=== PATIENT | male | born 1960 | race Caucasian/White ===

== ENCOUNTER 2016-04-03 08:46 | Day surgery (SDC) | payer OTHER ==
[2016-03-29 09:23] VITALS: BMI 47.2
[~2016-04-03 08:46] MED LIST: LACTATED RINGERS 1,000 ML IV SCH
[2016-04-03 09:15] VITALS: RESP 18; TEMP 98.8
[2016-04-03] MEDS ORDERED: LIDOCAINE 1% 20 ML VIAL (10MG/ML) FOR IV START INTRADERMA ONE (09:26)
[2016-04-03] MEDS ORDERED: DEXAMETHASONE SOD PHOS (MDV) 100 MG/10 ML VIAL ONE (10:07)
[2016-04-03] MEDS ORDERED: MIDAZOLAM 2 MG/2 ML VIAL ONE (10:07)
[2016-04-03] MEDS ORDERED: fentaNYL (PF) 50 MCG/ML 2 ML AMP ONE (10:07)
[2016-04-03] MEDS ORDERED: IOHEXOL 180 MG/ML 1 ML ML ONE (10:07)
--- NOTE | 2016-04-03 10:39 | P.PCN ---
Date of Procedure: 04/03/16 Anesthesia: MAC Surgeon: Ede Lowry Pathology: none sent Condition: stable Disposition: PACU Description of Procedure: PREOPERATIVE DIAGNOSIS: Cervical radiculopathy and postlaminectomy syndrome. POSTOPERATIVE DIAGNOSIS: same PROCEDURE 1. Cervical epidural steroid injection under fluoroscopic guidance, C7-T1 level. 2. Cervical epidurogram. ANESTHESIA: Local anesthesia with 1% lidocaine and IV sedation with versed/ fentanyl. EBL: Minimal PROCEDURE INDICATION: The patient with neck pain and radiculitis unresponsive to conservative treatment consents for procedure. PROCEDURE DESCRIPTION / TECHNIQUE: The patient was seen and identified in the preoperative area. Risks, benefits, complications, and alternatives were discussed with the patient (including but not limited to incomplete pain relief, bleeding, infection, nerve damage, and allergies to medications), the patient agreed to proceed with the procedure and signed the consent after all questions were answered. Patient was taken to the OR and time out was completed to verify proper patient , position, laterality of pain, and allergies. Pt was placed in the prone position. A pillow was placed under the patients chest to increase the cervical interlaminar space. The cervical area was prepped and draped in the usual sterile fashion. Critical pause was taken. Vital signs were closely monitored during the procedure. Conscious sedation was used during the procedure to decrease patients anxiety. Using anterior-posterior fluoroscopy, the C7-T1 interlaminar space was identified and the skin over this site was marked and then infiltrated with 1% lidocaine subcutaneously in a left paramedian fashion. Subsequently, a 20-gauge 3.5-inch Tuohy epidural needle was inserted and advanced toward the epidural space by means of the loss of resistance technique and guided by AP and lateral fluoroscopy. After negative aspiration for blood or CSF and in the absence of paresthesias, the correct needle position in the epidural space was verified with the injection of 1 mL of the water soluble contrast dye Omnipaque- 180 and observing an excellent epidurogram with the epidural spread of the dye, after negative aspiration for blood and CSF and in the absence of paresthesias. Again after negative aspiration, a 6 ml mixture containing 20 mg of PF Decadron and 4 ml of preservative free Normal Saline solution was injected and a washout of epidurogram was seen. Needle was withdrawn intact, skin was cleansed, and bandages were applied. COMPLICATIONS: None COMMENTS: DISPOSITION / PLANS: The patient was placed in a supine position and transferred to the recovery area in a stable condition for observation. There was no evidence of upper extremity motor or sensory deficit after the procedure. Patient was discharged from the recovery room after meeting discharge criteria. Home discharge instructions were given to the patient by the staff. The patient was reexamined prior to discharge. The patient will schedule a follow up injection in 4-[address] the patient in steep reverse Trendelenburg allowed me to use a 3.5-inch needle for the procedure (I used a 6-inch needle at last visit).
[2016-04-03] MEDS ORDERED: IV FLUID CONTINUATION 1,000 ML IV ONE (10:49)
--- NOTE | 2016-04-03 10:52 | FL ---
EXAMINATION TYPE: FL guided pain mgmt statistic DATE OF EXAM: 04/03/2016 10:41 AM HISTORY: Pain PATIENT HAS UPPER NECK PAIN. DR. LOPEZ ASSISTED C-ARM AND CERVICAL EPIDRUAL INJ. 21 SEC FLUORO TIME A ND 2 PAPER IMAGES SCANNED.
[2016-04-03 11:06] VITALS: BP 130/72; PULSE 97
== END 2016-04-03 11:16 | disposition home or self-care (01) ==
LOC: ORPAIN 08:46
PROVIDERS: ATTEND Anesthesiology
DX: M54.12 Radiculopathy, cervical region (principal); M96.1 Postlaminectomy syndrome, not elsewhere classified; I10 Essential (primary) hypertension; E78.5 Hyperlipidemia, unspecified; E66.01 Morbid (severe) obesity due to excess calories; F41.9 Anxiety disorder, unspecified; Z79.899 Other long term (current) drug therapy
CPT/HCPCS: 62321; J2250; Q9965; J3010; J1100

== ENCOUNTER 2016-05-15 09:57 | Day surgery (SDC) | payer OTHER ==
[2016-05-11 11:58] VITALS: BMI 46.0
[2016-05-15] MEDS ORDERED: LIDOCAINE 1% 20 ML VIAL (10MG/ML) FOR IV START INTRADERMA ONE (10:08)
[2016-05-15] MEDS ORDERED: MIDAZOLAM 2 MG/2 ML VIAL ONE (10:52)
[2016-05-15] MEDS ORDERED: TRIAMCINOLONE ACETONIDE 40 MG/ML 1 ML VIAL ONE (10:52)
[2016-05-15] MEDS ORDERED: BUPIVACAINE (PF) 0.5% 30 ML VIAL ONE (10:52)
[2016-05-15 11:14] VITALS: RESP 18
[2016-05-15] MEDS ORDERED: IV FLUID CONTINUATION 900 ML IV ONE (11:17)
[2016-05-15 11:30] VITALS: BP 144/76; PULSE 95
--- NOTE | 2016-05-25 12:17 | P.PCN ---
Date of Procedure: 05/15/16 Surgeon: Ede Lowry Pathology: none sent Condition: stable Disposition: PACU Description of Procedure: PREOPERATIVE DIAGNOSIS: 1-myofascial pain syndrome POSTOPERATIVE DIAGNOSIS: 1-myofascial pain syndrome PROCEDURE 1. Trigger point injections (3 muscle groups) ANESTHESIA: Local with 1% lidocaine; IV sedation with Versed/fentanyl. EBL: Minimal PROCEDURE INDICATION: The patient with myofascial pain in the area of cervical paraspinal, rhomboid, and trapezius muscles that has not responded to conservative therapy. Patient presents for trigger point injection today; no use of blood thinners. PROCEDURE DESCRIPTION / TECHNIQUE: The patient was seen and identified in the preoperative area. Risks, benefits, complications, and alternatives were discussed with the patient, including but not limited to bleeding, infection, nerve damage, allergic reactions to medications, and incomplete pain relief. The patient agreed to proceed with the procedure and signed the consent after all questions were answered. IV was started, and vital signs were stable. A total of eight trigger points were marked prior to entering the procedure room in the places where the patient had severe pain to muscle palpation. Patient was taken to the OR and time out was completed to confirm patient position, procedure, laterality of pain, and allergies. The patient was placed in the sitting position on procedure table. The area over the relevant muscles (neck, shoulder, and shoulder blade) was prepped and draped in the usual sterile fashion. Vital signs were closely monitored during the procedure. Conscious sedation was used during the procedure to decrease patients anxiety. Each of the previously marked areas was then infiltrated with 1% plain lidocaine using a 25g needle. After this, each point was entered with the same 25g needle and after a catch was felt, dry needling was performed. After negative aspiration at each point, 1 ml of a total of 8 ml (combination of 7 ml 0.5% bupivacaine and 40 mg Kenalog was injected in each area. Needle was withdrawn intact each time, skin was cleansed, and bandages were applied. COMPLICATIONS: None COMMENTS: None DISPOSITION / PLANS: The patient was placed in a supine position and transferred to the recovery area in a stable condition for observation. There was no evidence of lower extremity motor or sensory deficit after the procedure. Patient was discharged from the recovery room after meeting discharge criteria. Home discharge instructions were given to the patient by the staff. The patient was reexamined prior to discharge and there were no issues. The patient will schedule a follow up in the clinic in 2-4 weeks after seeing his neurosurgeon.
== END 2016-05-15 11:45 | disposition home or self-care (01) ==
LOC: ORPAIN 09:57
PROVIDERS: ATTEND Anesthesiology
DX: M79.1 Myalgia (principal); G89.29 Other chronic pain; M54.12 Radiculopathy, cervical region; I10 Essential (primary) hypertension; E78.5 Hyperlipidemia, unspecified; F12.90 Cannabis use, unspecified, uncomplicated; M25.512 Pain in left shoulder; Z79.82 Long term (current) use of aspirin; Z79.899 Other long term (current) drug therapy
CPT/HCPCS: 62321; J2250; J3301

== ENCOUNTER → 2016-10-17 | Outpatient (CLI) | payer OTHER ==
--- NOTE | 2016-10-19 07:35 | P.PN ---
Subjective This is follow-up visit for this patient with a history of severe and chronic pain with radiation to the upper extremity, possible cervical radiculopathy status post cervical fusion,, we have done interventional pain management injection,, cervical epidural steroid injections with fluroscopy guidance and trigger point injection, had excellent pain relief , intervention was done several months ago and currently patient complaining of severe neck pain with radiation to the left upper extremity Patient denies any side effects of the medication, denies excessive drowsiness or sleepiness, denies suicidal ideation, and reports that the current pain medication is NOT helping To control the pain and improve activity of daily living Patient denies any motor or sensory deficit , patient denies any fever or night sweats, denies any change in the bowel movements or urination Physical Examinations : 1-Constitutiona : Cooperative , not in acute distress . 2-HEENT : nech ; supple , no Lymphadenopathy , no Thyromegaly , normal thyroid size . eyes : no ptosis , no icterus, no photophobia . ENT : normal of hearing , normal oropharynx , no Thrush . 3- Respiratory : Chest clear to auscultations Bilaterally , no wheezing , no Rhonchi . 4- Cardiovascular : regular rate and rhythem , S1 , S2 , no S3 , no S4. 5- Gastrointestinal : abdomen soft no tenderness , bowel sounds positive all four quadrents , no organomegally . 6- Genitourinary : Defferred . 7- neurologic : Cranial nerve II to XII intact , no focal neurological deffecit . 8-psychatric : alert , oriented X 3 , appropriate affect , intact judgment and insight . 9-Lymphatic : no Lymphadenopathy . 10- musculoskeltal : exams of the cervical spine = motor strength normal bilateral upper extremities facet loading test cervical area positive. exams of the Lumber spine = motor strength lower extremities ,thigh and legs .5/5 Assessment and plan = Chronic and secondary to cervical radiculopathy, could benefit from repeat cervical epidural steroid injections procedure risks and benefits and alternatives discussed with the patient and he agreed with the preceding patient will be scheduled for cervical epidural sterile injection ROBERT
== END | disposition home or self-care (01) ==
LOC: PNWHC3 13:01
PROVIDERS: ATTEND Specialist
DX: M54.12 Radiculopathy, cervical region (principal); Z79.52 Long term (current) use of systemic steroids
CPT/HCPCS: 99211

== ENCOUNTER 2016-11-08 05:55 | Day surgery (SDC) | payer OTHER ==
[2016-11-06 09:21] VITALS: BMI 46.8
[2016-11-08 06:50] VITALS: RESP 18; TEMP 98.8
[2016-11-08] MEDS ORDERED: LACTATED RINGERS 1,000 ML IV ONE (06:56)
[2016-11-08] MEDS ORDERED: LIDOCAINE 1% 20 ML VIAL (10MG/ML) FOR IV START INTRADERMA ONE (06:57)
[2016-11-08] MEDS ORDERED: LACTATED RINGERS 1,000 ML IV SCH (07:15)
--- NOTE | 2016-11-08 07:54 | P.PCN ---
Date of Procedure: 11/08/16 Surgeon: Ede Lowry Pathology: none sent Condition: stable Disposition: PACU Description of Procedure: PREOPERATIVE DIAGNOSIS: Cervical radiculopathy and postlaminectomy syndrome. POSTOPERATIVE DIAGNOSIS: same PROCEDURE 1. Cervical epidural steroid injection under fluoroscopic guidance, T1-T2 level. 2. Cervical epidurogram. ANESTHESIA: Local anesthesia with 1% lidocaine and IV sedation with versed/ fentanyl. EBL: Minimal PROCEDURE INDICATION: The patient with neck pain and radiculitis s/p ACDF unresponsive to conservative treatment consents for procedure. No use of blood thinners. He has had relief for 4-5 days from each previous cervical epidural steroid injection and is planning to have surgery if the third procedure today again gives him limited relief. PROCEDURE DESCRIPTION / TECHNIQUE: The patient was seen and identified in the preoperative area. Risks, benefits, complications, and alternatives were discussed with the patient (including but not limited to incomplete pain relief, bleeding, infection, nerve damage, and allergies to medications), the patient agreed to proceed with the procedure and signed the consent after all questions were answered. Patient was taken to the OR and time out was completed to verify proper patient , position, laterality of pain, and allergies. Pt was placed in the prone position. A pillow was placed under the patients chest to increase the cervical interlaminar space. The cervical area was prepped and draped in the usual sterile fashion. Critical pause was taken. Vital signs were closely monitored during the procedure. Conscious sedation was used during the procedure to decrease patients anxiety. Using anterior-posterior fluoroscopy, the T1-T2 interlaminar space was identified and the skin over this site was marked and then infiltrated with 1% lidocaine subcutaneously in a left paramedian fashion. Subsequently, a 18-gauge 6-inch Tuohy epidural needle was inserted and advanced toward the epidural space by means of the loss of resistance technique and guided by AP and lateral fluoroscopy. After negative aspiration for blood or CSF and in the absence of paresthesias, the correct needle position in the epidural space was verified with the injection of 1 mL of the water soluble contrast dye Omnipaque- 180 and observing an excellent epidurogram with the epidural spread of the dye, after negative aspiration for blood and CSF and in the absence of paresthesias. Again after negative aspiration, a 4 ml mixture containing 20 mg of PF Decadron and 2 ml of preservative free Normal Saline solution was injected and a washout of epidurogram was seen. Needle was withdrawn intact, skin was cleansed, and bandages were applied. COMPLICATIONS: None COMMENTS: DISPOSITION / PLANS: The patient was placed in a supine position and transferred to the recovery area in a stable condition for observation. There was no evidence of upper extremity motor or sensory deficit after the procedure. Patient was discharged from the recovery room after meeting discharge criteria. Home discharge instructions were given to the patient by the staff. The patient was reexamined prior to discharge and there were no issues. The patient will schedule a follow up as needed.
[2016-11-08] MEDS ORDERED: IV FLUID CONTINUATION 1,000 ML IV ONE (08:02)
--- NOTE | 2016-11-08 08:11 | FL ---
EXAMINATION TYPE: FL guided pain mgmt statistic DATE OF EXAM: 11/08/2016 HISTORY: Pain CERVICAL EPI INJ. DR. LOPEZ. 11 SEC FLUOR. 3 IMAGES SAVED
[2016-11-08 08:35] VITALS: BP 131/65; PULSE 88
== END 2016-11-08 08:41 | disposition home or self-care (01) ==
LOC: ORPAIN 05:55
PROVIDERS: ATTEND Anesthesiology
DX: G89.29 Other chronic pain (principal); M54.12 Radiculopathy, cervical region; M96.1 Postlaminectomy syndrome, not elsewhere classified
CPT/HCPCS: 62321; 99152; J2250; J1100; Q9965; J3010

== ENCOUNTER → 2017-03-12 | Outpatient (CLI) | payer OTHER ==
--- NOTE | 2017-03-12 12:20 | CT ---
EXAMINATION TYPE: CT wrist LT wo con DATE OF EXAM: 03/12/2017 COMPARISON: NONE HISTORY: Left sided wrist pain for [address] DLP: 159.[address] of the left wrist . TECHNIQUE: Unenhanced CT of the left wrist was performed with bone and soft tissue window settings paz bmitted in the axial coronal and sagittal planes. FINDINGS: There is virtually nondisplaced fracture involving the distal radius with intra-articular e xtension. 2.8 mm bony fragment seen bilaterally. No additional fracture seen. Distal ulna is intact. There is mild surrounding soft tissue edema. IMPRESSION: 1. Virtually nondisplaced fracture of the distal radius with intra-articular extension.
== END | disposition home or self-care (01) ==
LOC: RADCTMAIN 11:14
PROVIDERS: ATTEND Family Medicine
DX: S52.572A Other intraarticular fracture of lower end of left radius, initial encounter for closed fracture (principal)

== ENCOUNTER 2018-04-02 09:43 | Inpatient (IN) | payer OTHER ==
[2018-04-02] MEDS ORDERED: predniSONE 20 MG TAB PO STA (09:52)
--- NOTE | 2018-04-02 09:58 | ED ---
General Adult HPI - General Chief complaint: Neuro Symptoms/Deficit Stated complaint: poss CVA Time Seen by Provider: 04/02/18 09:50 Source: patient, EMS, RN notes reviewed, old records reviewed Mode of arrival: EMS Limitations: no limitations - History of Present Illness Initial comments: 57-year-old male presents from primary care office with sided facial droop and slurred speech. Symptoms began on Sunday which was 5 days prior to arrival. Symptoms have progressed, patient has noted tearing from the left eye, slurred speech, left-sided facial droop, and pain behind his ear. 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 Denies headache. Denies vision changes. Denies focal numbness or weakness in his extremities. No history of TIA or CVA. He does have history of diabetes and hypertension. - Related Data Home Medications Medication Instructions Recorded Confirmed Lisinopril [Zestril] 20 mg PO DAILY 09/16/15 04/02/18 Aspirin [Adult Low Dose Aspirin EC] 81 mg PO DAILY 12/20/15 04/02/18 amLODIPine [Norvasc] 5 mg PO DAILY 12/20/15 04/02/18 Furosemide [Lasix] 40 mg PO DAILY 05/11/16 04/02/18 Atorvastatin [Lipitor] 10 mg PO HS 04/02/18 04/02/18 Fluticasone Nasal [place] [Flonase 1 spray EA NOSTRIL DAILY 04/02/18 04/02/18 Nasal [place]] Allergies Allergy/AdvReac Type Severity Reaction Status Date / Time gabapentin [From Neurontin] AdvReac Blurred Verified 04/02/18 10:38 Vision Review of Systems ROS Statement: Those systems with pertinent positive or pertinent negative responses have been documented in the HPI. ROS Other: All systems not noted in ROS Statement are negative. Past Medical History Past Medical History: Eye Disorder, Hyperlipidemia, Hypertension Additional Past Medical History / Comment(s): L wrist carpel tunnel, cervical pain with certain positions. Elbow and arm pain. Had eye exam L eye needs further examination. States has some blurred vision @ times. Hx. of Severino's Palsy. History of Any Multi-Drug Resistant Organisms: None Reported Past Surgical History: Hernia Repair, Orthopedic Surgery Additional Past Surgical History / Comment(s): gallbladder stone removal- uncertain if had cholecystectomy, colonoscopy, L arm muscle/bone surgery, cervical surgery for herniated disc with plate and screws. skin tags removed from lucy axilla, carpal tunnel Past Anesthesia/Blood Transfusion Reactions: No Reported Reaction Past Psychological History: No Psychological Hx Reported Smoking Status: Former smoker Past Alcohol Use History: Rare Past Drug Use History: None Reported - Past Family History Father Family Medical History: Cancer Additional Family Medical History / Comment(s): lung Mother Family Medical History: Hypertension General Exam Limitations: no limitations General appearance: alert, in no apparent distress Head exam: Present: atraumatic, normocephalic Eye exam: Present: PERRL, EOMI, other (Ptosis bilaterally, worse on the right) ENT exam: Absent: TM's normal bilaterally (External auditory canal on the left is within normal limits, there is cerumen impaction, TM not visualized) Neck exam: Present: normal inspection. Absent: tenderness, meningismus Respiratory exam: Present: normal lung sounds bilaterally. Absent: respiratory distress Cardiovascular Exam: Present: regular rate, normal rhythm GI/Abdominal exam: Present: soft. Absent: distended, tenderness Extremities exam: Present: normal inspection, normal capillary refill. Absent: pedal edema Neurological exam: Present: alert, oriented X3, normal gait, motor sensory deficit. Absent: CN II-XII intact Expanded Neurological exam: Present: other (Mild dysarthria) Cranial nerves: EOM's Intact: Normal, Gag Reflex: Normal, Tongue Deviation: Normal, Nystagmus: Normal, Facial Sensation: Normal, Facial Palsy without Forehead Movement: Abnormal Left Cerebellar function: Finger to Nose: Normal Sensory exam: Upper Extremity Light Touch: Normal, Lower Extremity Light Touch: Normal Motor strength exam: RUE: 5, LUE: 5, RLE: 5, LLE: 5 Eye Response: (4) open spontaneously Motor Response: (6) obeys commands Verbal Response: (5) oriented Psychiatric exam: Present: normal affect, normal mood Skin exam: Present: warm, dry, intact. Absent: cyanosis, diaphoretic Course Vital Signs 04/02/18 04/02/18 04/02/18 09:47 10:28 11:49 Temperature 98.1 F Pulse Rate 90 93 80 Respiratory 18 18 18 Rate Blood Pressure 161/69 159/84 139/85 O2 Sat by Pulse 97 94 L 100 Oximetry - Reevaluation(s) Reevaluation #1: 04/02/18 12:02 Patient reevaluated, signs and symptoms unchanged, vital signs stable Reevaluation #2: 04/02/18 1000 Case discussed with patient's primary care physician Dr. Simon, he had sent the patient from the office with these symptoms. 04/02/18 12:18 EKG Findings - EKG Comments: EKG Findings:: EKG: Normal sinus rhythm, LVH no ST segment changes, QRS is slightly widened at 110 ms, ventricular rate of 80, TX interval 150, QTC 445 Medical Decision Making - Medical Decision Making 57-year-old male presenting with left-sided facial droop, dysarthria, which began 4 days prior to arrival. Patient was sent from primary care office for evaluation of CVA. I do feel there could be some component of early Severino's palsy as there is some upper facial weakness associated with the lower weakness as well however patient has dysarthria, NIH of 3. Head CT is obtained, shows chronic ischemic changes, no acute large CVA or intracranial hemorrhage, workup reveals mild leukocytosis, 12.1, stable hemoglobin, chest x-ray negative for acute cardiopulmonary disease, CMP is within normal limits. Case discussed again with the patient's primary care physician Dr. Dodge, will admit for further workup. We will treat both CVA and Severino's palsy. - Lab Data Result diagrams: 04/02/18 10:25 04/02/18 10:25 Lab Results 04/02/18 04/02/18 04/02/18 Range/Units 10:25 10:25 10:25 WBC 12.1 H (3.8-10.6) k/uL RBC 4.97 (4.30-5.90) m/uL Hgb 14.2 (13.0-17.5) gm/dL Hct 43.7 (39.0-53.0) % MCV 88.0 (80.0-100.0) fL MCH 28.6 (25.0-35.0) pg MCHC 32.5 (31.0-37.0) g/dL RDW 14.1 (11.5-15.5) % Plt Count 266 (150-450) k/uL Neutrophils % 70 % Lymphocytes % 20 % Monocytes % 5 % Eosinophils % 3 % Basophils % 1 % Neutrophils # 8.5 H (1.3-7.7) k/uL Lymphocytes # 2.4 (1.0-4.8) k/uL Monocytes # 0.6 (0-1.0) k/uL Eosinophils # 0.4 (0-0.7) k/uL Basophils # 0.1 (0-0.2) k/uL PT (9.0-12.0) sec INR (<1.2) APTT (22.0-30.0) sec Sodium 145 (137-145) mmol/L Potassium 3.9 (3.5-5.1) mmol/L Chloride 104 (98-107) mmol/L Carbon Dioxide 31 H (22-30) mmol/L Anion Gap 10 mmol/L BUN 22 H (9-20) mg/dL Creatinine 0.90 (0.66-1.25) mg/dL Est GFR (CKD-EPI)AfAm >90 (>60 ml/min/1.73 sqM) Est GFR (CKD-EPI)NonAf >90 (>60 ml/min/1.73 sqM) Glucose 139 H (74-99) mg/dL Calcium 9.5 (8.4-10.2) mg/dL Total Bilirubin 0.7 (0.2-1.3) mg/dL AST 27 (17-59) U/L ALT 41 (21-72) U/L Alkaline Phosphatase 72 (38-126) U/L Total Creatine Kinase 157 (55-170) U/L CK-MB (CK-2) 1.0 (0.0-2.4) ng/mL CK-MB (CK-2) Rel Index 0.6 Troponin I <0.012 (0.000-0.034) ng/mL Total Protein 7.7 (6.3-8.2) g/dL Albumin 4.2 (3.5-5.0) g/dL 04/02/18 Range/Units 10:25 WBC (3.8-10.6) k/uL RBC (4.30-5.90) m/uL Hgb (13.0-17.5) gm/dL Hct (39.0-53.0) % MCV (80.0-100.0) fL MCH (25.0-35.0) pg MCHC (31.0-37.0) g/dL RDW (11.5-15.5) % Plt Count (150-450) k/uL Neutrophils % % Lymphocytes % % Monocytes % % Eosinophils % % Basophils % % Neutrophils # (1.3-7.7) k/uL Lymphocytes # (1.0-4.8) k/uL Monocytes # (0-1.0) k/uL Eosinophils # (0-0.7) k/uL Basophils # (0-0.2) k/uL PT 11.0 (9.0-12.0) sec INR 1.0 (<1.2) APTT 29.5 (22.0-30.0) sec Sodium (137-145) mmol/L Potassium (3.5-5.1) mmol/L Chloride (98-107) mmol/L Carbon Dioxide (22-30) mmol/L Anion Gap mmol/L BUN (9-20) mg/dL Creatinine (0.66-1.25) mg/dL Est GFR (CKD-EPI)AfAm (>60 ml/min/1.73 sqM) Est GFR (CKD-EPI)NonAf (>60 ml/min/1.73 sqM) Glucose (74-99) mg/dL Calcium (8.4-10.2) mg/dL Total Bilirubin (0.2-1.3) mg/dL AST (17-59) U/L ALT (21-72) U/L Alkaline Phosphatase (38-126) U/L Total Creatine Kinase (55-170) U/L CK-MB (CK-2) (0.0-2.4) ng/mL CK-MB (CK-2) Rel Index Troponin I (0.000-0.034) ng/mL Total Protein (6.3-8.2) g/dL Albumin (3.5-5.0) g/dL Disposition Clinical Impression: Cerebrovascular accident, Severino's palsy Disposition: [facility] Condition: Stable Is patient prescribed a controlled substance at d/c from ED?: No Referrals: Steve Simon Jr, [Primary Care Provider] - 1-2 days Decision to Admit Reason: Admit from EC Decision Date: 04/02/18 Decision Time: 12:18
--- NOTE | 2018-04-02 10:43 | XR ---
EXAMINATION TYPE: XR chest 2V DATE OF EXAM: 04/02/2018 COMPARISON: 09/16/2015 INDICATION: Altered mental status left facial droop TECHNIQUE: Frontal and lateral views of the chest are obtained. FINDINGS: The heart size is normal. The pulmonary vasculature is normal. The lungs are clear. There is prior anterior cervical fusion lower cervical spine. IMPRESSION: 1. No acute pulmonary process.
[2018-04-02 10:48] LABS: Basophils # (A) 0.1 k/uL (0-0.2); Basophils % (A) 1 %; Eosinophils # (A) 0.4 k/uL (0-0.7); Eosinophils % (A) 3 %; HCT 43.7 % (39.0-53.0); HGB 14.2 gm/dL (13.0-17.5); Lymphocytes # (A) 2.4 k/uL (1.0-4.8); Lymphocytes % (A) 20 %; MCH 28.6 pg (25.0-35.0); MCHC 32.5 g/dL (31.0-37.0); Mean Platelet Volume 6.4; Monocytes # (A) 0.6 k/uL (0-1.0); Monocytes % (A) 5 %; Neutrophils # (A) 8.5 k/uL (1.3-7.7); Neutrophils % (A) 70 %; Platelet Count 266 k/uL (150-450); RBC 4.97 m/uL (4.30-5.90); RDW 14.1 % (11.5-15.5); WBC 12.1 k/uL (3.8-10.6)
--- NOTE | 2018-04-02 10:51 | CT ---
EXAMINATION TYPE: CT brain wo con DATE OF EXAM: 04/02/2018 COMPARISON: None HISTORY: Patient complains of headache and slurred speech. CT DLP: 1137.[address] of the brain was performed. The ventricles, basal cisterns and sulci overlying the cerebral convexities demonstrate mild enlargem ent. There is no evidence for intracranial hemorrhage or sulcal effacement. There is decreased attenuation about the periventricular white matter and deep white matter of both c erebral hemispheres, compatible with chronic small vessel ischemia. Differential diagnosis does inclu de demyelination. No mass effects are seen.No midline shift. Osseous calvarium is intact. If symptoms persist consider MRI. IMPRESSION: 1. Age related atrophic and chronic small vessel ischemic change without acute intracranial process s een at this time.
[2018-04-02 10:54] LABS: Partial Thromboplastin Time 29.5 sec (22.0-30.0)
[2018-04-02 11:03] LABS: Creatine Kinase 157 U/L (55-170)
[2018-04-02 11:05] LABS: ALT 41 U/L (21-72); AST 27 U/L (17-59); Albumin 4.2 g/dL (3.5-5.0); Alkaline Phosphatase 72 U/L (38-126); Anion Gap 10 mmol/L; Blood Urea Nitrogen 22 mg/dL (9-20); Calcium 9.5 mg/dL (8.4-10.2); Carbon Dioxide 31 mmol/L (22-30); Chloride 104 mmol/L (98-107); Glucose 139 mg/dL (74-99); Potassium 3.9 mmol/L (3.5-5.1); Sodium 145 mmol/L (137-145); Total Bilirubin 0.7 mg/dL (0.2-1.3); Total Protein 7.7 g/dL (6.3-8.2)
[2018-04-02 11:14] LABS: Troponin I <0.012 ng/mL (0.000-0.034)
[2018-04-02] MEDS ORDERED: ASPIRIN 325 MG TAB PO STA (11:41)
[2018-04-02] MEDS ORDERED: SODIUM CHLORIDE 0.9% 1,000 ML IV SCH (12:30)
[2018-04-02] MEDS ORDERED: ACETAMINOPHEN TAB 500 MG TAB PO STA (14:37)
--- NOTE | 2018-04-02 15:26 | US ---
EXAMINATION TYPE: US carotid duplex BILAT DATE OF EXAM: 04/02/2018 COMPARISON: NONE CLINICAL HISTORY: Stenosis. No hx of tia. HTN controlled with meds. Left facial pain. EXAM MEASUREMENTS: RIGHT: Peak Systolic Velocity (PSV) cm/sec ----- Right CCA: 82.0 ----- Right ICA: 70.3 ----- Right ECA: 119.4 ICA/CCA ratio: 0.9 RIGHT: End Diastole cm/sec ----- Right CCA: 19.4 ----- Right ICA: 19.4 ----- Right ECA: 9.5 LEFT: Peak Systolic Velocity (PSV) cm/sec ----- Left CCA: 68.5 ----- Left ICA: 54.0 ----- Left ECA: 94.3 ICA/CCA ratio: 0.8 LEFT: End Diastole cm/sec ----- Left CCA: 18.0 ----- Left ICA: 54.0 ----- Left ECA: 10.2 VERTEBRALS (direction of flow): Right Vertebral: Antegrade Left Vertebral: Antegrade Rhythm: Normal No elevated velocities or significant stenosis. Wall thickening visualized. No plaque visualized. IMPRESSION: 1. No significant flow-limiting stenosis bilateral carotid bifurcations. Criteria for Assigning % of Stenosis / Diameter reduction (Estimation based on the indirect measurements of the internal carotid artery velocities (ICA PSV). 1. Normal (no stenosis)=ICA PSV < 125 cm/s: ratio < 2.0: ICA EDV<40 cm/s. 2. Less than 50% stenosis=ICA PSV < 125 cm/s: ratio < 2.0: ICA EDV<40 cm/s. 3. 50 to 69% stenosis=ICA PSV of 125 to 230 cm/s: ration 2.0 ? 4.0: ICA EDV 40-100 cm/s. 4. Greater than 70% stenosis to near occlusion= ICA PSV > 230 cm/s: ratio > 4.0: ICA EDV > 100 cm/s. 5. Near occlusion= ICA PSV velocities may be low or undetectable: variable ratio and ICA EDV. 6. Total occlusion=unable to detect flow.
[2018-04-02 17:21] VITALS: BMI 46.0
[2018-04-02] MEDS ORDERED: ATORVASTATIN 80 MG TAB PO SCH (21:00)
[2018-04-03] MEDS: ACETAMINOPHEN TAB 500 MG TAB PO PRN ×2 (00:29→06:34)
[2018-04-03 06:41] LABS: Cholesterol 170 mg/dL (<200); HDL Cholesterol 40 mg/dL (40-60); LDL Cholesterol,Calculated 115 mg/dL (0-99); Triglycerides 75 mg/dL (<150)
[2018-04-03] MEDS ORDERED: ASPIRIN 325 MG TAB PO SCH (09:00)
--- NOTE | 2018-04-03 10:09 | ECHOF ---
Referral Reason:Thrombus MEASUREMENTS -------- HEIGHT: 180.3 cm WEIGHT: 149.7 kg BP: RVIDd: 3.9 cm (< 3.3) IVSd: 1.0 cm (0.6 - 1.1) LVIDd: 4.6 cm (3.9 - 5.3) LVPWd: 1.1 cm (0.6 - 1.1) IVSs: 1.7 cm LVIDs: 2.3 cm LVPWs: 2.0 cm Ao Diam: 3.4 cm (2.0 - 3.7) AV Cusp: 2.3 cm (1.5 - 2.6) LA Diam: 3.0 cm (2.7 - 3.8) MV EXCURSION: 13.449 mm (> 18.000) MV EF SLOPE: 91 mm/s (70 - 150) EPSS: 1.2 cm MV E Chadd: 0.28 m/s MV DecT: 170 ms MV A Chadd: 0.23 m/s MV E/A Ratio: 1.21 RAP: 5.00 mmHg RVSP: 9.64 mmHg FINDINGS -------- Sinus rhythm. This was a technically difficult study with suboptimal views. Morbid Obesity The left ventricular size is normal. Left ventricular wall thickness is normal. Overall left vent ricular systolic function is normal with, an EF between 55 - 60 %. The right ventricle is mild to moderately enlarged. The left atrium was not well visualized. The right atrium was not well visualized. Lumason used The aortic valve was not well visualized. The mitral valve was not well visualized. The tricuspid valve was not well visualized. The pulmonic valve was not well visualized. The aortic root size is normal. IVC Not well visulized. CONCLUSIONS -------- 1. Sinus rhythm. 2. This was a technically difficult study with suboptimal views. 3. Morbid Obesity 4. The left ventricular size is normal. 5. Left ventricular wall thickness is normal. 6. Overall left ventricular systolic function is normal with, an EF between 55 - 60 %. 7. The right ventricle is mild to moderately enlarged. 8. The left atrium was not well visualized. 9. The right atrium was not well visualized. 10. Lumason used 11. The aortic valve was not well visualized. 12. The mitral valve was not well visualized. 13. The tricuspid valve was not well visualized. 14. The pulmonic valve was not well visualized. 15. The aortic root size is normal. 16. IVC Not well visulized. EGG GRADER: Daniella Harrington RDCS
[2018-04-03 10:14] VITALS: PULSE 86; RESP 18
--- NOTE | 2018-04-03 14:45 | P.HPIM ---
History of Present Illness H&P Date: 04/03/18 Chief Complaint: Left-sided facial droop with slurred speech Patient presented to the office this morning with chief complaint of facial droop on the left side with left facial nerve discomfort and weakness patient states symptoms began around Sunday and more became worse on Sunday and which time yesterday he decided to present to the office Review of Systems Constitutional: Reports as per HPI (Facial nerve pain with facial droop on the left) Gastrointestinal: Reports as per HPI Genitourinary: Reports as per HPI Musculoskeletal: Reports as per HPI Integumentary: Reports as per HPI (No right or left side weakness hands or legs) Past Medical History Past Medical History: Chest Pain / Angina, Eye Disorder, Hyperlipidemia, Hypertension Additional Past Medical History / Comment(s): rt wrist carpel tunnel, cervical pain with certain positions. Elbow and arm pain. Had eye exam L eye needs further examination. States has some blurred vision @ times. Hx. of Harrison's Palsy affected rt eye lid.shingles 2018 across abd. hx stress test." boarderline diabetic, no meds, no bs checks wathces what he eats" History of Any Multi-Drug Resistant Organisms: None Reported Past Surgical History: Hernia Repair, Orthopedic Surgery Additional Past Surgical History / Comment(s): gallbladder stone removal- uncertain if had cholecystectomy, colonoscopy, L elbow muscle/bone surgery, cervical surgery for herniated disc with plate and screws. skin tags removed from lucy axilla, lt carpal tunnel, cervical epidural injections Past Anesthesia/Blood Transfusion Reactions: No Reported Reaction Smoking Status: Former smoker - Past Family History Father Family Medical History: Cancer Additional Family Medical History / Comment(s): lung Mother Family Medical History: Hypertension Medications and Allergies Home Medications Medication Instructions Recorded Confirmed Type Lisinopril [Zestril] 20 mg PO DAILY 09/16/15 04/02/18 History Aspirin [Adult Low Dose Aspirin EC] 81 mg PO DAILY 12/20/15 04/02/18 History amLODIPine [Norvasc] 5 mg PO DAILY 12/20/15 04/02/18 History Furosemide [Lasix] 40 mg PO DAILY 05/11/16 04/02/18 History Atorvastatin [Lipitor] 10 mg PO HS 04/02/18 04/02/18 History Fluticasone Nasal Reeders [Flonase 1 spray EA NOSTRIL DAILY 04/02/18 04/02/18 History Nasal Reeders] Allergies Allergy/AdvReac Type Severity Reaction Status Date / Time gabapentin [From Neurontin] AdvReac Blurred Verified 04/02/18 10:38 Vision Physical Exam Osteopathic Statement: *. No significant issues noted on an osteopathic structural exam other than those noted in the History and Physical/Consult. Vitals: Vital Signs Temp Pulse Pulse Resp BP BP Pulse Ox 04/03/18 08:00 98.2 F 86 18 177/86 95 04/03/18 04:00 97.7 F 79 16 141/84 94 L 04/02/18 23:51 97 18 04/02/18 23:50 97.9 F 97 18 136/88 94 L 04/02/18 21:00 97.9 F 94 18 136/91 93 L 04/02/18 20:51 84 14 138/94 94 L 04/02/18 20:00 94 18 04/02/18 18:51 98.2 F 80 18 135/84 100 04/02/18 16:21 88 18 163/94 95 04/02/18 14:45 89 18 165/96 95 Intake and Output 04/02/18 04/03/18 04/03/18 22:59 06:59 14:59 Intake Total 240 Balance 240 Intake: Oral 240 Other: Voiding Method Toilet Toilet Toilet # Voids 1 1 Weight 163.6 kg General: [Patient awake, alert and oriented times 3. Patient in no acute distress.] HEENT: [PERRL. EOMI. No pharyngeal erythema or exudate.] Left side facial weakness with some slurred speech pain discomforts approximately at the angle of the jaw Neck: [No adenopathy.] Cardiac: [Heart regular in rate and rhythm. No S3. No S4. No clicks, rubs. No murmur.] Lungs: [Clear to auscultation bilaterally.] Abdomen: [No mass. No organomegaly. Bowel sounds presnt and normoactive in all 4 quadrants.] Extremes: [No edema no cyanosis no claudication normal pulses] no weakness left or right upper extremes no weakness left or right lower extreme : [] Musculoskeletal: [No joint erythema, edema or tenderness.] Skin: [No rash.] Neurologic: [No lateralizing deficits. CN II - XII grossly intact.] Lymphatic: [No adenopathy.] Results CBC & Chem 7: 04/02/18 10:25 04/02/18 10:25 Labs: Abnormal Lab Results - Last 24 Hours (Table) 04/03/18 Range/Units 05:39 LDL Cholesterol, Calc 115 H (0-99) mg/dL Thrombosis Risk Factor Assmnt - Choose All That Apply Any of the Below Risk Factors Present?: Yes Each Factor Represents 1 point: Age 41-60 years, Obesity (BMI >25) Other Risk Factors: No Other congenital or acquired thrombophilia - If yes, enter type in comment: No Thrombosis Risk Factor Assessment Total Risk Factor Score: 2 Thrombosis Risk Factor Assessment Level: Low Risk Assessment and Plan (1) Trigeminal neuralgia of left side of face Narrative/Plan: Patient has decreased sensation on the left with little or no motion pain radiating from around the distal superior to the angle of the jaw With facial droop and loss of sensation through the distribution of the facial nerve Current Visit: Yes Status: Acute Code(s): G50.0 - TRIGEMINAL NEURALGIA SNOMED Code(s): 75711012 (2) Harrison's palsy Current Visit: Yes Status: Acute Code(s): G51.0 - HARRISON'S PALSY SNOMED Code (s): 799167034 Plan: Computed tomography scan of brain negative MRI was unable to perform patient was too obese to go into the magnet Suspect trigeminal neuralgia versus CVA (doubt) Will discharge patient home on gabapentin 400 mg at at bedtime We'll continue current meds including lisinopril 81 mg aspirin amlodipine and atorvastatin We'll reevaluate in the office on Sunday Time with Patient: Greater than 30
--- NOTE | 2018-04-03 14:48 | P.DS ---
Providers Date of admission: 04/02/18 12:19 Expected date of discharge: 04/03/18 Attending physician: Steve Simon Consults: We'll obtain neurology consult as outpatient suspect facial nerve palsy or trigeminal neuralgia patient has no other symptoms except left facial nerve symptoms Primary care physician: Steve Simon - Discharge Diagnosis(es) (1) Trigeminal neuralgia of left side of face Current Visit: Yes Status: Acute (2) Severino's palsy Current Visit: Yes Status: Acute Hospital Course: Patient was admitted CT was performed and unremarkable for infarct Patient was unable to fit in the MRI Will obtain urology consult as outpatient as patient has complete facial nerve palsy on the left with little or no discomfort on the right has some pain radiating from the Actos O crest around to the face Evidence of headache no other neurological findings in the upper or lower extremes reflexes in the upper and lower extremes completely normal Patient Condition at Discharge: Good Plan - Discharge Summary Discharge Rx Participant: No New Discharge Prescriptions: No Action Lisinopril [Zestril] 20 mg PO DAILY amLODIPine [Norvasc] 5 mg PO DAILY Aspirin [Adult Low Dose Aspirin EC] 81 mg PO DAILY Furosemide [Lasix] 40 mg PO DAILY Fluticasone Nasal Harrison [Flonase Nasal Harrison] 1 spray EA NOSTRIL DAILY Atorvastatin [Lipitor] 10 mg PO HS Discharge Medication List Lisinopril [Zestril] 20 mg PO DAILY 09/16/15 [History] Aspirin [Adult Low Dose Aspirin EC] 81 mg PO DAILY 12/20/15 [History] amLODIPine [Norvasc] 5 mg PO DAILY 12/20/15 [History] Furosemide [Lasix] 40 mg PO DAILY 05/11/16 [History] Atorvastatin [Lipitor] 10 mg PO HS 04/02/18 [History] Fluticasone Nasal Harrison [Flonase Nasal Harrison] 1 spray EA NOSTRIL DAILY 04/02/18 [History] Follow up Appointment(s)/Referral(s): Steve Simon Jr, [Primary Care Provider] - 1-2 days
[2018-04-03 14:59] VITALS: BP 166/77; TEMP 96.8
== END 2018-04-03 15:49 | disposition home health service (06) | DRG 74 ==
LOC: EC 09:43 → 3SCARD 12:19
PROVIDERS: ADMIT Family Medicine; ATTEND Family Medicine
DX: G50.0 Trigeminal neuralgia (principal); G51.0 Bell's palsy; E11.9 Type 2 diabetes mellitus without complications; E78.5 Hyperlipidemia, unspecified; I10 Essential (primary) hypertension; Z79.82 Long term (current) use of aspirin; Z79.899 Other long term (current) drug therapy; Z82.49 Family history of ischemic heart disease and other diseases of the circulatory system; Z87.891 Personal history of nicotine dependence; M54.2 Cervicalgia
CPT/HCPCS: 36415; 70450; 71046; 80053; 80061; 82550; 82553; 84484; 85025; 85610; 85730; 93005; 93306; 93880; 99285

== ENCOUNTER → 2020-03-09 | Outpatient (CLI) | payer OTHER ==
[2020-03-09 14:57] LABS: African American GFR (CKD) 113.3 (60.0-200.0); Albumin 4.6 g/dL (3.80-4.90); Albumin/Globulin Ratio 1.92 (1.60-3.17); Anion Gap 6.6 mmol/L (4.00-12.00); BUN/Creat Ratio 32.5 Ratio (12.00-20.00); Calcium 9.1 mg/dL (8.7-10.3); Carbon Dioxide 30.4 mmol/L (21.6-31.8); Chol/HDL Ratio 4.48; Globulin 2.4 g/dL (1.6-3.3); Non-African American GFR(CKD) 97.8 (60.0-200.0); Potassium 4.2 mmol/L (3.5-5.5)
== END | disposition home or self-care (01) ==
LOC: LABWHC1 08:54
PROVIDERS: ATTEND Internal Medicine Interventional Cardiology
DX: E78.2 Mixed hyperlipidemia (principal)
CPT/HCPCS: 36415; 80053; 80061

== ENCOUNTER → 2020-09-09 | Outpatient (CLI) | payer OTHER ==
[2020-09-09 20:31] LABS: African American GFR (CKD) 107.2 (60.0-200.0); Albumin 4.4 g/dL (3.80-4.90); Albumin/Globulin Ratio 1.47 (1.60-3.17); Anion Gap 9.8 mmol/L (4.00-12.00); BUN/Creat Ratio 28.89 Ratio (12.00-20.00); Calcium 9.1 mg/dL (8.7-10.3); Carbon Dioxide 27.2 mmol/L (21.6-31.8); Chol/HDL Ratio 3.62; LDL Cholesterol,Calculated 80.2 mg/dL (0.0-131.0); Non-African American GFR(CKD) 92.5 (60.0-200.0); Total Bilirubin 0.9 mg/dL (0.2-1.2); Total Protein 7.4 g/dL (6.2-8.2); VLDL Calculation 16.8 mg/dL (5.00-40.00)
== END | disposition home or self-care (01) ==
LOC: LABWHC1 09:08
PROVIDERS: ATTEND Nurse Practitioner Adult Health
DX: I10 Essential (primary) hypertension (principal); E78.2 Mixed hyperlipidemia
CPT/HCPCS: 36415; 80053; 80061

== ENCOUNTER 2020-09-16 09:09 | Day surgery (SDC) | payer OTHER ==
[2020-09-14 16:50] VITALS: BMI 48.8
--- NOTE | 2020-09-16 09:06 | P.GSHP ---
History of Present Illness H&P Date: 09/16/20 CHIEF COMPLAINT: Abdominal mass/right flank HISTORY OF PRESENT ILLNESS: The patient is a 60 year-old male with history of mass along the abdomen. He presents today for surgical excision. PAST MEDICAL HISTORY: Please see list. PAST SURGICAL HISTORY: Please see list. MEDICATIONS: Please see list. ALLERGIES: Please see list. SOCIAL HISTORY: No illicit drug use FAMILY HISTORY: No reports of Crohn disease or ulcerative colitis. REVIEW OF ORGAN SYSTEMS: CONSTITUTIONAL: No reports of fevers or chills. GI: Denies any blood in stools or constipation. PHYSICAL EXAM: VITAL SIGNS: Stable SKIN: Well perfused. Good skin turgor. Mass 4 cm long right lower abdomen/flank Musculoskeletal: No clubbing cyanosis or edema GENERAL: Well developed and in no acute distress. Pleasant. HEENT: No sclera icterus. Extraocular movements grossly intact. Moist buccal mucosa. Head is atraumatic, normocephalic. Hears conversational speech. No nasal drainage. NECK: Supple without lymphadenopathy. No JV distention. CHEST: Non-labored respirations and equal bilateral excursions. CARDIOVASCULAR: Regular rate and rhythm. Palpable 2+ radial pulses. ABDOMEN: Soft. Non-tender. Nondistended. NEUROLOGIC: No focal or lateralizing signs. PSYCH: Appropriate affect. Alert and oriented to person, place and time. ASSESSMENT: 1. Mass along right lower abdomen/flank PLAN: 1. Will proceed of excision of subcutaneous tumor along the abdomen 2. DVT prophylaxis. 3. Antibiotic prophylaxis. 4. Time of recovery, at least one week. Past Medical History Past Medical History: Chest Pain / Angina, Diabetes Mellitus, Eye Disorder, Hyperlipidemia, Hypertension, Osteoarthritis (OA), Thyroid Disorder Additional Past Medical History / Comment(s): cervical pain with certain positions left Elbow and arm pain, Hx. of Severino's Palsy affected rt eye lid. shingles 2018,borderline diabetic-no meds, no bs checks, watches diet, recent sleep study-mild sleep apnea-no tx. needed-works midnights, swelling in lower legs, neuropathy, no recent chest pain-angina History of Any Multi-Drug Resistant Organisms: None Reported Past Surgical History: Cholecystectomy, Hernia Repair, Orthopedic Surgery Additional Past Surgical History / Comment(s): colonoscopy, L elbow muscle/bone surgery, cervical surgery for herniated disc with plate and screws. skin tags removed from lucy axilla, lt carpal tunnel, cervical epidural injections Past Anesthesia/Blood Transfusion Reactions: No Reported Reaction Smoking Status: Former smoker - Past Family History Father Family Medical History: Cancer Additional Family Medical History / Comment(s): lung Mother Family Medical History: Hypertension Medications and Allergies Home Medications Medication Instructions Recorded Confirmed Type lisinopriL [Zestril] 20 mg PO BID 09/16/15 09/14/20 History Aspirin [Adult Low Dose Aspirin EC] 81 mg PO DAILY 12/20/15 09/14/20 History amLODIPine [Norvasc] 5 mg PO DAILY 12/20/15 09/14/20 History Furosemide [Lasix] 40 mg PO HS 05/11/16 09/14/20 History Atorvastatin [Lipitor] 40 mg PO HS 04/02/18 09/14/20 History Levothyroxine Sodium [Levoxyl] 25 mcg PO HS 09/14/20 09/14/20 History Pregabalin [Lyrica] 150 mg PO TID 09/14/20 09/14/20 History hydroCHLOROthiazide [Hydrodiuril] 25 mg PO HS 09/14/20 09/14/20 History Allergies Allergy/AdvReac Type Severity Reaction Status Date / Time gabapentin [From Neurontin] AdvReac Blurred Verified 09/14/20 16:43 [facility]
[~2020-09-16 09:09] MED LIST changes: +ACETAMINOPHEN TAB 500 MG TAB PO PRN; +DEXAMETHASONE SOD PHOSPHATE 4 MG/ML 1 ML VIAL IV ONE; +HEPARIN SODIUM,PORCINE/PF 5,000 UNIT/0.5 ML SYRINGE SQ PRN; +HYDROmorphone 0.5 MG/0.5 ML SYRINGE IVP PRN; +MELOXICAM 7.5 MG TAB PO PRN; +ONDANSETRON 4 MG/2 ML VIAL IVP ONE; +Pre Op ABX Message 1 EACH MISC MISCELLANE ONE; +ceFAZolin 3 GM in SODIUM CHLORIDE 0.9% 100 ML IVPB PRN
[2020-09-16] MEDS ORDERED: ONDANSETRON 4 MG/2 ML VIAL ONE (09:33)
[2020-09-16] MEDS ORDERED: LIDOCAINE 1% (10MG/ML) FOR IV START INTRADERMA ONE (09:45)
[2020-09-16 09:54] LABS: Glucose,Whole Blood 116 mg/dL (75-99)
[2020-09-16 09:56] VITALS: RESP 18; TEMP 98
[2020-09-16] MEDS ORDERED: fentaNYL (PF) 50 MCG/ML 2 ML AMP ONE (10:34)
[2020-09-16] MEDS ORDERED: MIDAZOLAM 2 MG/2 ML VIAL ONE (10:34)
[2020-09-16] MEDS ORDERED: diphenhydrAMINE 50 MG/ML 1 ML VIAL ONE (10:34)
[2020-09-16] MEDS ORDERED: KETAMINE 10 MG/ML 20 ML VIAL ONE (10:34)
[2020-09-16] MEDS ORDERED: LIDOCAINE 1%-EPI 1:100,000 20 ML VIAL SQ ONE ×2 (11:00→11:13)
[2020-09-16 11:44] VITALS: BP 158/72; PULSE 85
--- NOTE | 2020-09-16 11:55 | P.OP ---
Date of Procedure: 09/16/20 Description of Procedure: SURGEON: ELLYN LOPEZ MD CHEMISTRY PROFESSOR: None. PREOPERATIVE DIAGNOSES: 1. Right flank subcutaneous tumor, 4 cm 2. Morbid obesity due to excess calories, BMI 51.4 3. Diabetes type 2, [id number] 4. Hypertensive heart disease with cardiomyopathy 5. Hyperlipidemia 6. Hypothyroidism 7. Obstructive sleep apnea POSTOPERATIVE DIAGNOSES: 1. Right flank subcutaneous tumor, 4 cm 2. Morbid obesity due to excess calories, BMI 51.4 3. Diabetes type 2, [id number] 4. Hypertensive heart disease with cardiomyopathy 5. Hyperlipidemia 6. Hypothyroidism 7. Obstructive sleep apnea PROCEDURES PERFORMED: 1. Excision of subcutaneous right flank mass, 7 cm x 3 cm 2. Intermediate closure right flank incision, 8 -cm Anesthesia: IV sedation, local Estimated Blood Loss (ml): 5 Pathology: other (Right flank mass) Condition: stable Disposition: same day Operative Findings: 1. Subcutaneous tumor 4 cm, excised via 7 x 3 cm along the right flank/abdominal wall 2. Patient placed in left lateral decubitus position for excision of tumor COMPLICATIONS: None. INDICATIONS: The patient is a 60-year-old female who presents with symptomatic right large flank tumor. Benefits and risks of surgical intervention were described including bleeding, infection. Informed consent was obtained. DESCRIPTION OR PROCEDURE: In the preoperative area, the area of concern was marked with indelible marker. Patient was brought into the operating room. After general induction, the patient was positioned in left lateral decubitus position. The flank was prepped and draped in a standard sterile fashion with ChloraPrep. Timeout protocol was confirmed with the surgical team regarding the patient's name, procedure to be performed including preoperative medications. DVT prophylaxis was confirmed. A field block was placed of the right flank/abdomen. An elliptical transverse incision using #15 blade was made along the marking into the dermis and subcutaneous tissue. Electro-Bovie cautery was used to enter subcutaneous tissue where a tumor projecting along the skin was removed in total. 0 Vicryl for the deep subcutaneous tissue followed by 3-0 Monocryl in a running subcuticular fashion was placed along the dermis. The skin was cleansed and Exofin tape with liquid was applied for a final closure. The incision was covered with Optifoam dressing. An abdominal binder was placed. Local anesthetic was placed. At the end of the procedure, needle, sponge, and instrument count was verified correct by helicopter technician. The patient tolerated the procedure well. Plan - Discharge Summary Discharge Rx Participant: No New Discharge Prescriptions: New Acetaminophen Tab [Tylenol Tab] 1,000 mg PO Q6HR PRN #30 tablet PRN Reason: Pain Ibuprofen [Motrin] 600 mg PO Q8HR PRN #30 tab PRN Reason: Pain Continue lisinopriL [Zestril] 20 mg PO BID amLODIPine [Norvasc] 5 mg PO DAILY Aspirin [Adult Low Dose Aspirin EC] 81 mg PO DAILY Furosemide [Lasix] 40 mg PO HS Atorvastatin [Lipitor] 40 mg PO HS Pregabalin [Lyrica] 150 mg PO TID hydroCHLOROthiazide [Hydrodiuril] 25 mg PO HS Levothyroxine Sodium [Levoxyl] 25 mcg PO HS Discharge Medication List lisinopriL [Zestril] 20 mg PO BID 09/16/15 [History] Aspirin [Adult Low Dose Aspirin EC] 81 mg PO DAILY 12/20/15 [History] amLODIPine [Norvasc] 5 mg PO DAILY 12/20/15 [History] Furosemide [Lasix] 40 mg PO HS 05/11/16 [History] Atorvastatin [Lipitor] 40 mg PO HS 04/02/18 [History] Levothyroxine Sodium [Levoxyl] 25 mcg PO HS 09/14/20 [History] Pregabalin [Lyrica] 150 mg PO TID 09/14/20 [History] hydroCHLOROthiazide [Hydrodiuril] 25 mg PO HS 09/14/20 [History] Acetaminophen Tab [Tylenol Tab] 1,000 mg PO Q6HR PRN #30 tablet 09/16/20 [Rx] Ibuprofen [Motrin] 600 mg PO Q8HR PRN #30 tab 09/16/20 [Rx] Follow up Appointment(s)/Referral(s): Ellyn Lopez MD [STAFF PHYSICIAN] - 09/23/20 Patient Instructions/Handouts: *[facility] - (Anesthesia) Discharge Instructions Outpatient Surgery, *[facility] - Managing Your Pain After Surgery Without Opioids, Excision of Skin Lesion (DC) Activity/Diet/Wound Care/Special Instructions: NO WIDE MOTIONS OF THE WAIST FOR 1 WEEK. NO LATERAL BENDING AT THE HIPS WHILE SITTING See instructions on dressing. DO NOT REMOVE DRESSING. No lifting over 10 pounds in 2 weeks, Sep 30June shower. No bath tub soaks for two weeks, Sep 30 Diet as tolerated. Use ice along incisions for today to prevent swelling. Take tylenol, aleve/ibuprofen scheduled for 3 days for best pain relief Discharge Disposition: HOME SELF-CARE
== END 2020-09-16 12:30 | disposition home or self-care (01) ==
LOC: OR 09:09
PROVIDERS: ATTEND Surgery Plastic and Reconstructive Surgery
DX: D21.4 Benign neoplasm of connective and other soft tissue of abdomen (principal); E03.9 Hypothyroidism, unspecified; E11.9 Type 2 diabetes mellitus without complications; E66.01 Morbid (severe) obesity due to excess calories; E78.5 Hyperlipidemia, unspecified; G47.33 Obstructive sleep apnea (adult) (pediatric); I11.9 Hypertensive heart disease without heart failure; Z68.43 Body mass index [BMI] 50.0-59.9, adult; L72.11 Pilar cyst; Z79.82 Long term (current) use of aspirin; I42.9 Cardiomyopathy, unspecified; Z87.891 Personal history of nicotine dependence; Z80.9 Family history of malignant neoplasm, unspecified
CPT/HCPCS: 21931; 88305; J2250; J1200; J1100; J0690; J2405; J3010; 88304

== ENCOUNTER 2020-10-31 15:14 | Emergency (ER) | payer OTHER ==
[2020-10-31] MEDS ORDERED: ACETAMINOPHEN TAB 500 MG TAB PO STA (15:54)
[2020-10-31] MEDS ORDERED: SODIUM CHLORIDE 0.9% 1,000 ML IV ONE (15:55)
[2020-10-31 16:18] LABS: Basophils # (A) 0.1 k/uL (0-0.2); Basophils % (A) 1 %; Eosinophils % (A) 0 %; HCT 40.6 % (39.0-53.0); HGB 14.4 gm/dL (13.0-17.5); Lymphocytes # (A) 1.2 k/uL (1.0-4.8); Lymphocytes % (A) 16 %; MCH 30.6 pg (25.0-35.0); MCHC 35.3 g/dL (31.0-37.0); MCV 86.7 fL (80.0-100.0); Mean Platelet Volume 7.3; Monocytes # (A) 0.3 k/uL (0-1.0); Monocytes % (A) 4 %; Neutrophils # (A) 5.5 k/uL (1.3-7.7); Neutrophils % (A) 76 %; Platelet Count 217 k/uL (150-450); Poikilocytosis Slight; RBC 4.68 m/uL (4.30-5.90); RDW 14.4 % (11.5-15.5); WBC 7.2 k/uL (3.8-10.6)
[2020-10-31 16:36] LABS: ALT 97 U/L (4-49); AST 91 U/L (17-59); African American GFR (CKD) >90 (>60 ml/min/1.73 sqM); Albumin 3.8 g/dL (3.5-5.0); Alkaline Phosphatase 68 U/L (38-126); Anion Gap 8 mmol/L; Blood Urea Nitrogen 16 mg/dL (9-20); Calcium 8.6 mg/dL (8.4-10.2); Carbon Dioxide 27 mmol/L (22-30); Chloride 102 mmol/L (98-107); Glucose 117 mg/dL (74-99); Magnesium 2.1 mg/dL (1.6-2.3); Non-African American GFR(CKD) >90 (>60 ml/min/1.73 sqM); Potassium 3.9 mmol/L (3.5-5.1); Sodium 137 mmol/L (137-145); Total Bilirubin 1.1 mg/dL (0.2-1.3); Total Protein 7.1 g/dL (6.3-8.2)
--- NOTE | 2020-10-31 17:03 | XR ---
EXAMINATION TYPE: XR chest 1V portable DATE OF EXAM: 10/31/2020 COMPARISON: 04/02/2018 HISTORY: Pneumonia. Chest pain TECHNIQUE: FINDINGS: There is some mild increased interstitial density right upper lobe and left lower lobe. The re are no hilar masses. Heart size is normal. There is no heart failure. There is no pleural effusion . IMPRESSION: There is some interstitial infiltrate right upper lobe and left lower lobe that appears n ew compared to old exam. No heart failure.
[2020-10-31 17:14] VITALS: PULSE 86; TEMP 98.8
[2020-10-31] MEDS ORDERED: DEXAMETHASONE SOD PHOSPHATE 10 MG/ML 1 ML VIAL IV STA (17:31)
[2020-10-31] MEDS ORDERED: CASIRIVIMAB/IMDEVIMAB (EUA) 1,200 MG in SODIUM CHLORIDE 0.9% 100 ML IVPB ONE (18:00)
[2020-10-31 18:03] VITALS: BP 151/86; RESP 20
--- NOTE | 2020-10-31 18:10 | ED ---
URI HPI - General Chief Complaint: Upper Respiratory Infection Stated Complaint: Covid Symptoms Time Seen by Provider: 10/31/20 15:33 Source: patient Mode of arrival: wheelchair Limitations: no limitations - History of Present Illness Initial Comments: Kamron is a 60-year-old male who presents the ER today for evaluation of fevers, chills, body aches, loss of taste and smell, decreased oral intake concern for dehydration. Patient states he believes he has COVID-19 and came to the ER today due to concern that he is becoming dehydrated. Patient states that he has not felt well for nearly a week, he lost taste and smell 4 days ago. He's not been eating or drinking and states that he knows he is dehydrated in addition he was bringing his son to the ER due to his shortness of breath that he should check in and be evaluated as well. Patient is not vaccinated. - Related Data Home Medications Medication Instructions Recorded Confirmed lisinopriL [Zestril] 20 mg PO BID 09/16/15 09/16/20 Aspirin [Adult Low Dose Aspirin EC] 81 mg PO DAILY 12/20/15 09/16/20 amLODIPine [Norvasc] 5 mg PO DAILY 12/20/15 09/16/20 Furosemide [Lasix] 40 mg PO HS 05/11/16 09/16/20 Atorvastatin [Lipitor] 40 mg PO HS 04/02/18 09/16/20 Levothyroxine Sodium [Levoxyl] 25 mcg PO HS 09/14/20 09/16/20 Pregabalin [Lyrica] 150 mg PO TID 09/14/20 09/16/20 hydroCHLOROthiazide [Hydrodiuril] 25 mg PO HS 09/14/20 09/16/20 Previous Rx's Medication Instructions Recorded Acetaminophen Tab [Tylenol Tab] 1,000 mg PO Q6HR PRN #30 tablet 09/16/20 Ibuprofen [Motrin] 600 mg PO Q8HR PRN #30 tab 09/16/20 Allergies Allergy/AdvReac Type Severity Reaction Status Date / Time gabapentin [From Neurontin] AdvReac Blurred Verified 10/31/20 15:28 Vision Review of Systems ROS Statement: Those systems with pertinent positive or pertinent negative responses have been documented in the HPI. ROS Other: All systems not noted in ROS Statement are negative. Past Medical History Past Medical History: Chest Pain / Angina, Eye Disorder, Hyperlipidemia, Hyper tension Additional Past Medical History / Comment(s): rt wrist carpel tunnel, cervical pain with certain positions. Elbow and arm pain. Had eye exam L eye needs further examination. States has some blurred vision @ times. Hx. of Severino's Palsy affected rt eye lid.shingles 2018 across abd. hx stress test." boarderline diabetic, no meds, no bs checks wathces what he eats" History of Any Multi-Drug Resistant Organisms: None Reported Past Surgical History: Hernia Repair, Orthopedic Surgery Additional Past Surgical History / Comment(s): gallbladder stone removal- uncertain if had cholecystectomy, colonoscopy, L elbow muscle/bone surgery, cervical surgery for herniated disc with plate and screws. skin tags removed from lucy axilla, lt carpal tunnel, cervical epidural injections Past Anesthesia/Blood Transfusion Reactions: No Reported Reaction Past Psychological History: No Psychological Hx Reported Smoking Status: Never smoker Past Alcohol Use History: Rare Past Drug Use History: Marijuana - Past Family History Father Family Medical History: Cancer Additional Family Medical History / Comment(s): lung Mother Family Medical History: Hypertension General Exam - General Exam Comments Initial Comments: Physical Exam GENERAL: Patient is well-developed and well-nourished. Ill appearing BMI 47 HENT: Normocephalic, Atraumatic. EYES: PERRL, EOMI PULMONARY: Unlabored respirations. CARDIOVASCULAR: RRR Warm and well perfused extremities ABDOMEN: Non-distended SKIN: No rashes or bruising : Deferred NEUROLOGIC: Alert and oriented Normal speech Normal gait MUSCULOSKELETAL: Moving all extremities with no apparent injury PSYCHIATRIC: No SI/HI Limitations: no limitations Course Vital Signs 10/31/20 10/31/20 10/31/20 15:28 17:11 18:02 Temperature 98.5 F 98.8 F Pulse Rate 95 86 86 Respiratory 20 18 20 Rate Blood Pressure 143/71 142/79 151/86 O2 Sat by Pulse 95 93 L 94 L Oximetry Medical Decision Making - Medical Decision Making The patient was seen and evaluated, history was obtained from the patient 6-year-old morbidly obese male with symptoms of COVID-19, patient is not hypoxic or requiring supplemental oxygenation Labs and chest x-ray were obtained, chest x-ray is consistent with COVID-19 pneumonia Patient was treated with steroids, patient is a candidate for monoclonal antibodies, risks and benefits of monoclonal antibodies were discussed. Patient does consent to monoclonal antibodies at this time. Regin was ordered and infusing - Lab Data Result diagrams: 10/31/20 16:00 10/31/20 16:00 Lab Results 10/31/20 10/31/20 10/31/20 Range/Units 16:00 16:00 16:00 WBC 7.2 (3.8-10.6) k/uL RBC 4.68 (4.30-5.90) m/uL Hgb 14.4 (13.0-17.5) gm/dL Hct 40.6 (39.0-53.0) % MCV 86.7 (80.0-100.0) fL MCH 30.6 (25.0-35.0) pg MCHC 35.3 (31.0-37.0) g/dL RDW 14.4 (11.5-15.5) % Plt Count 217 (150-450) k/uL MPV 7.3 Neutrophils % 76 % Lymphocytes % 16 % Monocytes % 4 % Eosinophils % 0 % Basophils % 1 % Neutrophils # 5.5 (1.3-7.7) k/uL Lymphocytes # 1.2 (1.0-4.8) k/uL Monocytes # 0.3 (0-1.0) k/uL Eosinophils # 0.0 (0-0.7) k/uL Basophils # 0.1 (0-0.2) k/uL Poikilocytosis Slight Sodium 137 (137-145) mmol/L Potassium 3.9 (3.5-5.1) mmol/L Chloride 102 (98-107) mmol/L Carbon Dioxide 27 (22-30) mmol/L Anion Gap 8 mmol/L BUN 16 (9-20) mg/dL Creatinine 0.75 (0.66-1.25) mg/dL Est GFR (CKD-EPI)AfAm >90 (>60 ml/min/1.73 sqM) Est GFR (CKD-EPI)NonAf >90 (>60 ml/min/1.73 sqM) Glucose 117 H (74-99) mg/dL Calcium 8.6 (8.4-10.2) mg/dL Magnesium 2.1 (1.6-2.3) mg/dL Total Bilirubin 1.1 (0.2-1.3) mg/dL AST 91 H (17-59) U/L ALT 97 H (4-49) U/L Alkaline Phosphatase 68 (38-126) U/L Total Protein 7.1 (6.3-8.2) g/dL Albumin 3.8 (3.5-5.0) g/dL Coronavirus (PCR) Detected A (Not Detectd) - EKG Data -: EKG Interpreted by Me EKG Comments: EKG was obtained at 1601 rate is 88 rhythm is sinus is normal axis, there are normal intervals MS 156 care S1 16 QTC [address] elevations or depressions no evidence of ischemia or infarction Disposition Clinical Impression: COVID-19 Disposition: HOME SELF-CARE Condition: Serious Additional Instructions: I recommend a supplement such as Emergen-C (or store brand) which has Vitamin C, Zinc and Vitamin D Stay hydrated Buy a pulse ox to monitor oxygen levels Return to the emergency department if oxygen is less than 90% or he develops any chest pain, palpitations or any new or concerning symptoms Is patient prescribed a controlled substance at d/c from ED?: No Referrals: [facility],Clinic [Primary Care Provider] - 1-2 days
[2020-10-31] MEDS ORDERED: SODIUM CHLORIDE 0.9% 50 ML IVPB ONE (18:30)
== END 2020-10-31 19:01 | disposition home or self-care (01) ==
LOC: EC 15:14
DX: U07.1 COVID-19 (principal); E78.5 Hyperlipidemia, unspecified; I10 Essential (primary) hypertension; F12.90 Cannabis use, unspecified, uncomplicated; Z72.89 Other problems related to lifestyle; Z79.82 Long term (current) use of aspirin; Z79.899 Other long term (current) drug therapy
CPT/HCPCS: 36415; 93005; 80053; 83735; 85025; 87635; 71045; 99284; 96365; 96367; 96361 ×2; J1100; Q0243

== ENCOUNTER → 2021-07-01 | Outpatient (CLI) | payer OTHER ==
--- NOTE | 2021-07-01 10:43 | US ---
EXAMINATION TYPE: US thyroid st tissue head/neck DATE OF EXAM: 07/01/2021 COMPARISON: NONE CLINICAL HISTORY: E03.9 HYPOTHYROIDISM. GLAND SIZE: Right Lobe: 4.6 x 2.0 x 1.6 cm Overall Parenchyma: heterogenous Left Lobe: 2.9 x 1.1 x 0.9 cm Overall Parenchyma: heterogeneous Isthmus Thickness: 0.3 cm NODULES RIGHT: # of nodules measured on right: 0 LEFT: # of nodules measured on left: 0 ISTHMUS: # of nodules measured in the isthmus: 0 Bilateral neck scanned, no evidence of lymphadenopathy. IMPRESSION: Glandular heterogeneity. Otherwise unremarkable study.
== END | disposition home or self-care (01) ==
LOC: RADUSWWP 10:05
PROVIDERS: ATTEND Family Medicine
DX: E03.9 Hypothyroidism, unspecified (principal); E07.89 Other specified disorders of thyroid
CPT/HCPCS: 76536

== ENCOUNTER 2022-02-22 12:37 | Day surgery (SDC) | payer OTHER ==
[2022-02-17 09:33] VITALS: BMI 48.6
--- NOTE | 2022-02-21 13:40 | P.HPOR ---
History of Present Illness H&P Date: 02/21/22 Chief Complaint: Left cubital tunnel syndrome Subjective: This is a 61 year old male that presents today for initial evaluation regarding a several year worsening history of left hand numbness and now weakness. He has a history of left open carpal tunnel release performed 5 years prior by another physician for severe carpal tunnel syndrome, he has noticed no relief since surgery. He has noticed increasing weakness of intelligence agent strength and persistent numb ness now in the ring and small finger with medial elbow soreness and pain that radiates down the forearm. He is asymptomatic on his right side. Physical Examination: LUE: AIN/PIN/Radial/Ulnar/Median motor intact. Radial/Ulnar/Median SILT. 2+/4 Radial/Ulnar pulses palpated. 5/5 APB, 5/5 FDI. Negative Finkelsteins, negative CMC grind, negative Durkan's compression, persistent numbness in thumb, index, and middle finger. Positive tinels at elbow with prolonged flexion of elbow reproducing paresthesias in ring and small fingers. EMG/NCV: B/L UE on 04/08/21 demonstrates left carpal/cubital tunnel syndrome. Right carpal/cubital tunnel syndrome Impression: 1.) Left cubital tunnel syndrome 2.) Left carpal tunnel syndrome, chronic. Plan: Diagnosis and treatment options were discussed with the patient. He has failed conservative treatment for his left cubital tunnel syndrome and would like to pursue surgery in the form of left elbow cubital tunnel release, open. We discussed persistent carpal tunnel syndrome symptoms and that these are likely permanent due to severity of his disease prior to release 5 years ago and I do not recommend revision carpal tunnel release since he never had relief at any point in time after his carpal tunnel release. Risks and benefits of surgery including bleeding, infection, damage to surrounding tissue, need for further surgery, residual numbness were discussed and the patient wished to go forward with surgery. The patient was agreeable with this plan, PCP clearance is requested. -Josh Tong DO Orthopedic Hand/Upper Extremity Surgeon Past Medical History Past Medical History: Chest Pain / Angina, Diabetes Mellitus, Eye Disorder, Hyperlipidemia, Hypertension Additional Past Medical History / Comment(s): Hx. of Severino's Palsy., Shingles (2018)., states borderline sleep apnea., has cut and bruising by his eye., pain left arm. History of Any Multi-Drug Resistant Organisms: None Reported Past Surgical History: Cholecystectomy, Hernia Repair, Orthopedic Surgery, Tonsillectomy Additional Past Surgical History / Comment(s): colonoscopy, L "tennis elbow surgery"., cervical surgery for herniated disc with plate and screws. ,skin tags lucy axilla., lt carpal tunnel, cervical epidural injections., umbilical hernia, sinus surgery, blepharoplasty Past Anesthesia/Blood Transfusion Reactions: No Reported Reaction Past Psychological History: No Psychological Hx Reported Additional Psychological History / Comment(s): . Smoking Status: Former smoker Past Alcohol Use History: None Reported Additional Past Alcohol Use History / Comment(s): smoked as a teenager. Past Drug Use History: Marijuana Additional Drug Use History / Comment(s): denies current marijuana use - Past Family History Father Family Medical History: Cancer Additional Family Medical History / Comment(s): lung Mother Family Medical History: Hypertension Medications and Allergies Home Medications Medication Instructions Recorded Confirmed Type lisinopriL [Zestril] 20 mg PO BID 09/16/15 02/17/22 History Aspirin [Adult Low Dose Aspirin EC] 81 mg PO DAILY 12/20/15 02/17/22 History amLODIPine [Norvasc] 5 mg PO DAILY 12/20/15 02/17/22 History Furosemide [Lasix] 40 mg PO DAILY@2200 05/11/16 02/17/22 History Atorvastatin [Lipitor] 40 mg PO DAILY 04/02/18 02/17/22 History Pregabalin [Lyrica] 150 mg PO TID 09/14/20 02/17/22 History Cholecalciferol [Vitamin D3 (25 25 mcg PO BID 02/17/22 02/17/22 History Mcg = 1000 Iu)] Cinnamon Bark [Cinnamon] 500 mg PO BID 02/17/22 02/17/22 History DULoxetine HCL [Cymbalta] 60 mg PO DAILY 02/17/22 02/17/22 History Levothyroxine Sodium [Synthroid] 75 mcg PO DAILY 02/17/22 02/17/22 History Vitamin B Complex 1 each PO DAILY 02/17/22 02/17/22 History metFORMIN HCL [Glucophage] 500 mg PO DAILY@2300 02/17/22 02/17/22 History Allergies Allergy/AdvReac Type Severity Reaction Status Date / Time gabapentin [From Neurontin] AdvReac headaches Verified 02/17/22 08:56 Physical Examination Osteopathic Statement: *. No significant issues noted on an osteopathic structural exam other than those noted in the History and Physical/Consult.
[~2022-02-22 12:37] MED LIST changes: -ACETAMINOPHEN TAB 500 MG TAB PO PRN; -HEPARIN SODIUM,PORCINE/PF 5,000 UNIT/0.5 ML SYRINGE SQ PRN; -HYDROmorphone 0.5 MG/0.5 ML SYRINGE IVP PRN; -MELOXICAM 7.5 MG TAB PO PRN; -ceFAZolin 3 GM in SODIUM CHLORIDE 0.9% 100 ML IVPB PRN; +fentaNYL (PF) 50 MCG/ML 2 ML AMP IV PRN
[2022-02-22 13:33] LABS: Glucose,Whole Blood 119 mg/dL (70-110)
[2022-02-22 13:33] LABS: Glucose,Whole Blood 74 mg/dL (70-110)
[2022-02-22] MEDS ORDERED: HYDROmorphone (PF) 1 MG/ML ONE (15:12)
[2022-02-22] MEDS ORDERED: PHENYLEPHRINE-0.9% NACL SYG 1,000 MCG/10 ML SYRINGE ONE (15:12)
[2022-02-22] MEDS ORDERED: SUCCINYLCHOLINE CHLORIDE 200 MG/10 ML VIAL IV ONE (15:12)
[2022-02-22] MEDS ORDERED: fentaNYL (PF) 50 MCG/ML 2 ML AMP ONE (15:12)
[2022-02-22] MEDS ORDERED: LIDOCAINE 2% INJ 20 MG/ML (2 ML VIAL) ONE (15:12)
[2022-02-22] MEDS ORDERED: MIDAZOLAM 2 MG/2 ML VIAL ONE (15:12)
[2022-02-22] MEDS ORDERED: PROPOFOL 10 MG/ML 20 ML VIAL IV ONE (15:12)
[2022-02-22] MEDS ORDERED: BUPIVACAINE (PF) 0.5% 30 ML VIAL SQ ONE (16:27)
[2022-02-22 17:15] VITALS: TEMP 97
[2022-02-22 17:25] VITALS: RESP 16
[2022-02-22 17:59] VITALS: BP 100/57; PULSE 102
--- NOTE | 2022-02-22 20:34 | P.OP ---
Date of Procedure: 02/22/22 Preoperative Diagnosis: 1.) Left cubital tunnel syndrome 2.) Morbid Obesity (BMI 49.1) Postoperative Diagnosis: 1.) Left cubital tunnel syndrome 2.) Morbid Obesity (BMI 49.1) Procedure(s) Performed: 1.) Left open cubital tunnel release, in situ ([id number]) Anesthesia: regional Surgeon: Josh Tong Assistant Professor Of English #1: Dominik Palomares Estimated Blood Loss (ml): 10 Pathology: none sent Condition: stable Disposition: PACU Description of Procedure: This is a 61 year old male who presented today for a left open cubital tunnel release after having failed conservative treatment. Risks and benefits of surgery were discussed with the patient including bleeding, damage to surrounding tissue, persistent numbness, infection, need for further surgery as well as risks of anesthesia including pulmonary embolism and even and the patient wished to proceed with surgical intervention. The patient was seen in the pre-operative area by myself. Consent and H&P were completed and updated. The correct extremity was marked in the pre-operative area by myself and all oth er questions were answered. Operative Narrative: The patient was brought to the operating room by the department of anesthesia. They remained on the portable stretcher and a rolling hand table was brought to the side of the operative extremity. Pre-operative time out was performed indicating the correct patient, procedure and laterality. All in the room agreed. Pre-operative antibiotics were given prior to skin incision. The patient was then drifted off to sleep by the department of anesthesia. A nonsterile tourniquet was then applied to the operative extremity and the left upper extremity was then prepped and draped in normal sterile fashion. The operative extremity was the exsanguinated with an esmarch bandage and the tourniquet was inflated to 250mmHg. Attention was brought to the medial elbow. 15 blade scalpel was used to incise skin in between the medial epicondyle and olecranon in a curvlinear and longitudinal fashion. Blunt dissection was taken down through subcutaneous tissue with tenotomy scissors and branches of the MABCN were identified and protected. Dissection was found to be difficult due to the abundant fatty tissue present making retraction more difficult that usual due to patients body habitus. Dissection was carried proximally and the ulnar nerve was identified and released from surrounding soft tissue structures proximally. Proximally the nerve did not appear to be compromised or compressed. Dissection was then carried distally and christianson's ligament was released at the medial epicondyle, the nerve appeared very compressed at this location. Dissection was then carried out further distal and the fascia of the two heads of the FCU were incised and the ulnar nerve was decompressed from both the deep and superficial FCU fascia with Ileana and tenotomy scissors under direct visualization. The nerve appeared flattened and erythematous at the location of the two heads of the FCU. The elbow was the flexed and extended and the ulnar nerve appeared to be stable in a tension free manner. 20 cc's of 0.5% bupivacaine was injected into the subcutaneous tissues. Skin closure was performed with interrupted 3-0 Monocryl sutures followed by running 4-0 Monocryl sutures and soft dressing was applied with steri strips, cast padding and jacinto wrap. Tourniquet was then let down and the hand had immediate perfusion. The patient was then woken by the department of anesthesia and transferred to PACU in stable condition. Dominik HOWARD was present to assist in major portions of the case including protection of vital neurovascular structures and retraction. This case required a significant amount of extra effort and assistance due to the patients large body habitus and morbid obesity (BMI 49.1) which contributed to the case taking approximately twice as long as a typical open in situ cubital tunnel release. Josh Tong D.O. Orthopedic Hand/Upper Extremity Surgeon
== END 2022-02-22 18:13 | disposition home or self-care (01) ==
LOC: OR 12:37
PROVIDERS: ATTEND Orthopaedic Surgery Hand Surgery
DX: G56.22 Lesion of ulnar nerve, left upper limb (principal); Z98.890 Other specified postprocedural states; G56.02 Carpal tunnel syndrome, left upper limb; I25.119 Atherosclerotic heart disease of native coronary artery with unspecified angina pectoris; E11.9 Type 2 diabetes mellitus without complications; Z79.84 Long term (current) use of oral hypoglycemic drugs; I10 Essential (primary) hypertension; E78.5 Hyperlipidemia, unspecified; E66.01 Morbid (severe) obesity due to excess calories; Z68.42 Body mass index [BMI] 45.0-49.9, adult; H57.9 Unspecified disorder of eye and adnexa; Z86.69 Personal history of other diseases of the nervous system and sense organs; Z90.49 Acquired absence of other specified parts of digestive tract; Z87.891 Personal history of nicotine dependence; Z80.2 Family history of malignant neoplasm of other respiratory and intrathoracic organs; Z82.49 Family history of ischemic heart disease and other diseases of the circulatory system; Z79.82 Long term (current) use of aspirin; B02.9 Zoster without complications; Z79.02 Long term (current) use of antithrombotics/antiplatelets; Z79.899 Other long term (current) drug therapy; Z79.891 Long term (current) use of opiate analgesic; Z79.811 Long term (current) use of aromatase inhibitors; Z88.8 Allergy status to other drugs, medicaments and biological substances
CPT/HCPCS: 64718; J2250; J0330; J1100; J2405; J3010; J1170; J2370; J2704; J2001